=== PATIENT | male | born 1945 | race Caucasian/White ===

== ENCOUNTER 2024-09-13 07:17 | Day surgery (SDC) | payer OTHER ==
[~2024-09-13] VITALS: Ht 188 cm; Wt 92.8 kg
[~2024-09-13 07:17] MED LIST: ASA81 PO; CARV6.2554 PO; CEFAZOLIN SOD 2 GM in D5W 50 ML IV ONE; DOXA-7 PO; EZET-75 PO; FURO10SO PO; LIP80 PO; OCUVITE PO; OMEP-268 PO
[2024-09-13] MEDS ORDERED: ACETAMINOPHEN 500 MG TABLET ONE (07:25)
[2024-09-13] MEDS ORDERED: CELECOXIB 100 MG CAPSULE ONE (07:26)
[2024-09-13] MEDS ORDERED: GABAPENTIN 400 MG CAPSULE ONE (07:27)
[2024-09-13] MEDS ORDERED: SCOPOLAMINE HYDROBROMIDE 1 MG PATCH .72 H (TRANSDERM-SCOP) TD ONE (07:35)
[2024-09-13] MEDS ORDERED: oxyCODONE HCL 10 MG TAB.ER.12H PO ONE (07:36)
[2024-09-13] MEDS: VANCOMYCIN HCL 1.25 GM/NS 250 ML IV ONE (08:22)
[2024-09-13] MEDS: ACETAMINOPHEN 500 MG TABLET PO ONE (08:30)
[2024-09-13] MEDS: SCOPOLAMINE HYDROBROMIDE 1 MG PATCH .72 H (TRANSDERM-SCOP) TD ONE (08:30)
[2024-09-13] MEDS: GABAPENTIN 400 MG CAPSULE PO ONE (08:30)
[2024-09-13] MEDS: CELECOXIB 100 MG CAPSULE PO ONE (08:30)
[2024-09-13] MEDS: oxyCODONE HCL 10 MG TAB.ER.12H PO ONE (08:50)
[2024-09-13] MEDS ORDERED: PROPOFOL DRIP 100 ML IV ONE (08:54)
[2024-09-13] MEDS ORDERED: VANCOMYCIN HCL 1000 MG/VIAL IV ONE (08:57)
[2024-09-13] MEDS ORDERED: BUPIVACAINE /DEX PF 0.75% SPINAL 2 ML AMP INJ ONE (08:57)
[2024-09-13] MEDS ORDERED: NS IRRIG SOLN 1000 ML IR ONE (08:57)
[2024-09-13] MEDS ORDERED: PHENYLEPHRINE HCL 10 MG/ML VIAL (NEOSYNEPHRINE) ONE (08:57)
[2024-09-13] MEDS ORDERED: LR 1,000 ML IV.SOLN IV ONE (08:57)
[2024-09-13] MEDS ORDERED: ROPIVACAINE HCL/PF 5 MG/ML 0.5% 30 ML VIAL ONE (08:57)
[2024-09-13] MEDS ORDERED: NS IRRIG SOLN 5000 ML IR ONE (08:57)
[2024-09-13] MEDS ORDERED: WATER FOR IRRIGATION,STERILE 1,000 ML IRRIG.SOLN IR ONE (08:57)
[2024-09-13] MEDS ORDERED: LORATADINE 10 MG TABLET PO PRN (11:00)
[2024-09-13] MEDS ORDERED: METOCLOPRAMIDE HCL 10 MG/2 ML VIAL IVP PRN (11:15)
[2024-09-13] MEDS ORDERED: DIPHENHYDRAMINE HCL 25 MG CAPSULE PO PRN (11:15)
[2024-09-13] MEDS ORDERED: LACTULOSE 20 GM/30 ML UDC PO PRN (11:15)
[2024-09-13] MEDS ORDERED: ceFAZolin SODIUM 2 GM in D5W 50 ML IV SCH (11:15)
[2024-09-13] MEDS ORDERED: BISACODYL 10 MG/SUPPOSITORY RC PRN (11:15)
[2024-09-13] MEDS ORDERED: LR 1,000 ML IV ONE (11:45)
[2024-09-13] MEDS ORDERED: ONDANSETRON HCL 4 MG/2 ML VIAL IVP PRN ×2 (11:45→17:45)
[2024-09-13] MEDS ORDERED: HYDROmorphone 1 MG/ML INJ. CARTRIDGE IVP PRN ×4 (11:45→17:45)
[2024-09-13] MEDS ORDERED: fentaNYL CITRATE/PF 100 MCG/2 ML AMP IVP PRN ×2 (11:45)
[2024-09-13] MEDS ORDERED: TAMSULOSIN HCL 0.4 MG CAP PO ONE (12:00)
[2024-09-13] MEDS ORDERED: TAMSULOSIN HCL 0.4 MG CAP ONE (12:31)
[2024-09-13 12:53] VITALS: BP_SYST 147; PULSE 85; RESP 16; TEMP 96.9; O2SAT 100
[2024-09-13] MEDS: TAMSULOSIN HCL 0.4 MG CAP PO ONE (13:00)
[2024-09-13] MEDS ORDERED: ACETAMINOPHEN 500 MG TABLET PO SCH (14:00)
[2024-09-13] MEDS ORDERED: KETOROLAC TROMETHAMINE 10 MG TABLET (TORADOL) PO SCH (14:00)
[2024-09-13] MEDS ORDERED: traMADol HCL HCL 50 MG TABLET (ULTRAM) PO PRN (17:45)
[2024-09-13] MEDS ORDERED: oxyCODONE HCL 5 MG TABLET PO PRN ×2 (17:45)
[2024-09-13] MEDS ORDERED: SENNOSIDES/DOCUSATE SODIUM 1 TAB TABLET(SENOKOT-S) PO SCH (21:00)
[2024-09-14] MEDS ORDERED: APIXABAN 2.5 MG TABLET PO SCH (09:00)
[2024-09-14] MEDS ORDERED: TAMSULOSIN HCL 0.4 MG CAP PO SCH (09:00)
[2024-09-14] MEDS ORDERED: CELECOXIB 200 MG CAPSULE PO SCH (11:00)
== END 2024-09-13 17:45 | disposition home or self-care (01) ==
LOC: SDS 07:17 → SMU 07:18 → SDS 17:45
PROVIDERS: ATTEND Student in an Organized Health Care Education/Training Program
DX: M17.12 Unilateral primary osteoarthritis, left knee (principal); M25.762 Osteophyte, left knee; M25.561 Pain in right knee; K21.9 Gastro-esophageal reflux disease without esophagitis; G47.30 Sleep apnea, unspecified; I25.10 Atherosclerotic heart disease of native coronary artery without angina pectoris; M10.9 Gout, unspecified; Z95.1 Presence of aortocoronary bypass graft; Z98.52 Vasectomy status; Z90.13 Acquired absence of bilateral breasts and nipples; Z98.890 Other specified postprocedural states; Z79.82 Long term (current) use of aspirin; Z79.899 Other long term (current) drug therapy
CPT/HCPCS: 87081; 27447; 97162; 64447; 73560; 96379; 97110; 97530; 97116; 88305; 88311; C1776 ×2; J3490; J0690; J0696; J2704; J3370 ×2; J7060 ×2; J7120; C1713 ×3